=== PATIENT | female | born 1985 ===

== ENCOUNTER 2016-12-23 01:17 | Emergency (ER) | payer MEDICAID ==
[2016-12-23 01:18] VITALS: BMI 45.1
[2016-12-23] MEDS ORDERED: Albuterol-Ipratrop 3 mg / 0.5 (3 ml) UD ONE (01:27)
[2016-12-23 01:30] VITALS: O2SAT 100
[2016-12-23] MEDS ORDERED: Albuterol-Ipratrop 3 mg / 0.5 (3 ml) UD INH STA (01:37)
[2016-12-23 01:50] LABS: BASO # 0.1 K/uL (0.0-0.2); BASO % 0.7 % (0.0-2.0); EOS % 0.5 % (0.0-4.0); HEMATOCRIT 43.2 % (34.0-47.0); LYMPH # 2.7 K/uL (1.0-4.3); LYMPH % 30.8 % (20.0-40.0); MEAN CELL VOLUME 95.9 fl (81.0-99.0); MEAN CORPUSCULAR HEMOGLOBIN 32.6 pg (27.0-31.0); MEAN PLATELET VOLUME 7.1 fl (7.2-11.7); MONO # 0.4 K/uL (0.0-0.8); NEUT # 5.5 K/uL (1.8-7.0); RED CELL DISTRIBUTION WIDTH 14.4 % (11.5-14.5); WHITE BLOOD COUNT 8.7 K/uL (4.8-10.8)
--- NOTE | 2016-12-23 02:07 | ED PDOC ---
HPI: SOB/CHF/COPD Time Seen by Provider: 12/23/16 01:31 Chief Complaint (Nursing): Respiratory Distress History Per: Patient Additional Complaint(s): Pt. states today she's had wheezing unrelieved with her albuterol pump. Pt. states a hx of asthma. She's been admitted for asthma in the past but no previous intubations. Denies fever, N/V/D, chest pain, hemoptysis, sick contacts , recent travel. Past Medical History Reviewed: Historical Data, Nursing Documentation, Vital Signs Vital Signs: Last Vital Signs Temp 98.6 F 12/23/16 02:47 Pulse 102 H 12/23/16 02:51 Resp 20 12/23/16 02:47 BP 121/56 L 12/23/16 02:47 Pulse Ox 100 12/23/16 02:51 - Medical History PMH: Anemia (gestational), Bronchitis Denies: Chronic Kidney Disease - Surgical History Surgical History: Endoscopy Denies: Pacemaker - Family History Family History: States: No Known Family Hx - Immunization History Hx Tetanus Toxoid Vaccination: No Hx Influenza Vaccination: No Hx Pneumococcal Vaccination: No - Home Medications Home Medications: Ambulatory Orders Medication Instructions Recorded Acetaminophen [Tylenol] 325 mg PO Q4 PRN #0 tab 09/08/14 Famotidine [Pepcid] 20 mg PO HS #20 tab 10/09/14 Ibuprofen [Motrin] 600 mg PO Q6H #20 tab 10/09/14 Tylenol with Codeine No. 3 300 10/09/14 mg-30 mg Ibuprofen [Motrin] 600 mg PO TID PRN #30 tab 12/17/15 diaZEpam [Valium] 5 mg PO Q8 PRN #12 tab 12/17/15 Albuterol 0.083% [Albuterol 3 ml IH Q4 PRN #50 neb 12/23/16 Sulfate 3 Ml] Methylprednisolone [Medrol Dose 4 mg PO DAILY #21 mg 12/23/16 Pack (21 tabs)] Nebulizer [Aeroeclipse] 1 each MC Q4 PRN #1 each 12/23/16 - Allergies Allergies/Adverse Reactions: Allergies Allergy/AdvReac Type Severity Reaction Status Date / Time No Known Allergies Allergy Verified 06/21/14 15:21 Review of Systems ROS Statement: Except As Marked, All Systems Reviewed And Found Negative Respiratory: Positive for: Wheezing Physical Exam - Reviewed Nursing Documentation Reviewed: Yes Vital Signs Reviewed: Yes - Physical Exam Appears: Positive for: Well, Non-toxic, No Acute Distress Head Exam: Positive for: ATRAUMATIC, NORMAL INSPECTION, NORMOCEPHALIC Skin: Positive for: Normal Color, Warm. Negative for: Rash Eye Exam: Positive for: EOMI, Normal appearance, PERRL ENT: Positive for: Normal ENT Inspection Neck: Positive for: Normal, Painless ROM Cardiovascular/Chest: Positive for: Regular Rate, Rhythm Respiratory: Positive for: Normal Breath Sounds, Accessory Muscle Use ( suprasternal retractions), Wheezing (b/l expiratory and inspiratory ). Negative for: Crackles, Rales, Rhonchi Gastrointestinal/Abdominal: Positive for: Normal Exam, Bowel Sounds, Soft. Negative for: Tenderness Back: Positive for: Normal Inspection Extremity: Positive for: Normal ROM Neurologic/Psych: Positive for: Alert, Oriented - Laboratory Results Result Diagrams: 12/23/16 01:45 12/23/16 01:45 - ECG ECG: Positive for: Interpreted By Me ECG Rhythm: Positive for: Sinus Tachycardia. Negative for: ST/T Changes Rate: 102 O2 Sat by Pulse Oximetry: 100 - Radiology X-Ray: Interpreted by Me (CXR) X-Ray Interpretation: No Acute Disease - Progress Re-evaluation Time: 02:45 (Lungs clear b/l. Reports good relief of wheezing. ) Condition: Re-examined, Improved Disposition - Clinical Impression Clinical Impression: Bronchospasm, acute - Patient ED Disposition Is Patient to be Admitted: No - Disposition Disposition: Routine/Home Disposition Time: 02:50 Condition: IMPROVED Prescriptions: Albuterol 0.083% [Albuterol Sulfate 3 Ml] 3 ml IH Q4 PRN #50 neb PRN Reason: wheezing Methylprednisolone [Medrol Dose Pack (21 tabs)] 4 mg PO DAILY #21 mg Nebulizer [Aeroeclipse] 1 each MC Q4 PRN #1 each PRN Reason: Wheezing Instructions: Bronchospasm (ED) Print Language: SAO TOMEAN
[2016-12-23 02:11] VITALS: RESP 20
[2016-12-23 02:13] LABS: CHLORIDE 108 mmol/L (98-107); SODIUM 139 mmol/l (132-148)
[2016-12-23 02:15] LABS: ALB/GLOB RATIO 1.3 (1.0-2.1); AST/SGOT 73 U/L (14-36); BILIRUBIN,TOTAL 1.4 mg/dl (0.2-1.3); CARBON DIOXIDE 20 mmol/L (22-30); GFR AFRICAN-AMERICAN > 60; TOTAL PROTEIN 8.8 G/DL (6.3-8.2)
[2016-12-23 02:16] LABS: ALKALINE PHOSPHATASE 81 U/L (38-126); ALT/SGPT 22 U/L (9-52); BLOOD UREA NITROGEN 10 mg/dl (7-17); CALCIUM 8.8 mg/dL (8.4-10.2); GLUCOSE,RANDOM 102 mg/dL (65-105)
[2016-12-23 02:19] LABS: POTASSIUM 5.2 MMOL/L (3.6-5.0)
[2016-12-23 02:48] VITALS: TEMP 98.6
[2016-12-23 02:56] VITALS: BP 121/59; PULSE 95
--- NOTE | 2016-12-23 08:33 | RAD ---
HISTORY: Wheezing. COMPARISON: 09/30/2012. FINDINGS: LUNGS: No active pulmonary disease. PLEURA: No significant pleural effusion identified, no pneumothorax apparent. CARDIOVASCULAR: Normal. OSSEOUS STRUCTURES: No significant abnormalities. VISUALIZED UPPER ABDOMEN: Normal. OTHER FINDINGS: None. IMPRESSION: No active disease. No significant interval change compared to the prior examination(s).
== END 2016-12-23 02:58 | disposition home or self-care (01) ==
LOC: H.ER 01:17
DX: J98.01 Acute bronchospasm (principal); R00.0 Tachycardia, unspecified